=== PATIENT | female | born 1965 ===

== ENCOUNTER 2017-04-13 15:57 | Emergency (ER) | payer MEDICAID, OTHER ==
[2017-04-13 16:04] VITALS: BP 121/68; PULSE 88; RESP 20; TEMP 98.2; O2SAT 98
[2017-04-13] MEDS ORDERED: Naproxen 500 MG TAB PO STA (16:33)
--- NOTE | 2017-04-13 16:44 | ED PDOC ---
Upper Extremity Pain/Injury Time Seen by Provider: 04/13/17 16:08 Chief Complaint (Nursing): Upper Extremity Problem/Injury Chief Complaint (Provider): Left wrist pain History Per: Patient History/Exam Limitations: no limitations Onset/Duration Of Symptoms: Persistent (4 months ) Current Symptoms Are (Timing): Still Present Quality: "Pain" Severity: Moderate Additional Complaint(s): Jaja Huizar is a 52 y/o female presenting to the ER on 04/13/2017 with persistent left wrist pain ongoing for four months after suffering a fall, causing her to fracture her wrist. Patient was placed in a sugar tong splint when she presented to [facility] after she sustained the injury. Since the onset of the injury, she has not followed up with an orthopedist after visiting [facility] two more times and continues to experience pain to the wrist along with difficulty in moving her hand and fingers. Patient also states she has stopped using her sling, but has not removed her splint. She denies any acute injuries but reports intermittent numbness in her fingers. Past Medical History Reviewed: Historical Data, Nursing Documentation, Vital Signs Vital Signs: Last Vital Signs Temp 98.2 F 04/13/17 16:02 Pulse 88 04/13/17 16:02 Resp 20 04/13/17 16:02 BP 121/68 04/13/17 16:02 Pulse Ox 98 04/13/17 16:02 - Medical History PMH: Asthma, Diabetes (type II), HTN, Hypercholesterolemia Denies: Chronic Kidney Disease - Surgical History Surgical History: Appendectomy, Cholecystectomy - Family History Family History: States: Diabetes - Social History Current smoker - smoking cessation education provided: No Alcohol: None Drugs: Denies - Immunization History Hx Tetanus Toxoid Vaccination: No Hx Influenza Vaccination: Yes (07/2016) Hx Pneumococcal Vaccination: Yes (2014) - Home Medications Home Medications: Ambulatory Orders Medication Instructions Recorded Aspirin [Ecotrin] 81 mg PO DAILY #0 tabec 06/21/16 Codeine 30 mg PO TID 12/12/16 Naproxen [Naprosyn] 1 tab PO BID PRN #25 tab 12/12/16 oxyCODONE/Acetaminophen [Percocet 1 tab PO Q4H PRN #20 tab 12/12/16 5/325 mg Tab] Acetaminophen with Codeine 1 each PO Q6 #14 tablet 01/05/17 [Tylenol with Codeine #3 Tablet] Naproxen [Naprosyn] 1 tab PO BID PRN #60 tab 04/13/17 - Allergies Allergies/Adverse Reactions: Allergies Allergy/AdvReac Type Severity Reaction Status Date / Time No Known Allergies Allergy Verified 01/05/17 19:05 Review of Systems ROS Statement: Except As Marked, All Systems Reviewed And Found Negative Musculoskeletal: Positive for: Hand Pain ((+) left wrist pain ) Neurological: Positive for: Numbness Physical Exam - Reviewed Nursing Documentation Reviewed: Yes Vital Signs Reviewed: Yes - Physical Exam Appears: Positive for: In Acute Distress ((+) mild painful ) Head Exam: Positive for: ATRAUMATIC, NORMOCEPHALIC Skin: Positive for: Normal Color. Negative for: Rash Eye Exam: Positive for: Normal appearance Extremity: Positive for: Capillary Refill (2+ ), Other. Negative for: Deformity , Swelling (sugar tong splint was removed, left hand shows no deformity or swelling; fingers are held in slight flexion and there is 4+/5 strength in movement of fingers and wrist; light touch is intact with strong radial pulse; marked atrophy of muscles of left forearm noted; flexion and extension at elbow are intact, shoulder movement intact ) Neurologic/Psych: Positive for: Alert, Oriented. Negative for: Motor/Sensory Deficits - ECG O2 Sat by Pulse Oximetry: 98 Medical Decision Making Medical Decision Making: Initial Impression- Left Wrist Fracture, old Initial Plan- * XR left wrist * Naprosyn 500 mg PO * Accession No. : [id number] Patient Name / ID : CRISTIANE BREWER / [id number] Exam Date : 04/13/2017 16:39:26 ( Approved ) Study Comment : Sex / Age : F / 52Y Creator : Edward Hall MD Dictator : Edward Hall MD Inside Sales Specialist : Newcomer Hostess : Edward Hall MD Approver2 : Report Date : 04/13/2017 17:47:51 My Comment : PROCEDURE: Left wrist dated 04/13/2017 HISTORY: LEFT wrist pain h/o fracture no followup COMPARISON: No prior study available for comparison. FINDINGS: BONES: Current study reveals old healed fracture deformity of the distal left radius. . There is palmar angulation of the distal healed fracture fragment. Note that the distal ulna styloid is not visible on this exam which could be an anatomic variation however old fracture with resorption not excluded. . Mild diffuse demineralization. JOINTS: Joint spaces relatively preserved. SOFT TISSUES: Soft tissues appear grossly unremarkable. No radiopaque foreign bodies. OTHER FINDINGS: None. IMPRESSION: Current study reveals old healed fracture deformity of the distal left radius. . There is palmar angulation of the distal healed fracture fragment. Note that if if symptoms persist or occult fracture suspected clinically recommend repeat radiographs in 5-10 days as most fractures should become radiographically evident in this timeframe. Pt was given basic wrist splint and sling. Pt was strongly encouraged to schedule a follow-up with an orthopedic within 2-3 days. Documented by Herrera Ortiz, acting as a scribe for Soniya Cummins MD. All medical record entries made by the Scribe were at my direction and personally dictated by me. I have reviewed the chart and agree that the record accurately reflects my personal performance of the history, physical exam, medical decision making, and the department course for this patient. I have also personally directed, reviewed, and agree with the discharge instructions and disposition. Disposition - Clinical Impression Clinical Impression: Fracture of wrist - Disposition Referrals: [facility] [Outside] [facility] [Outside] Ulises Ingram MD [Medical Doctor] - (LLAMA A LA OFICINA POR LA MANANA A HACER MIRELLA ELLEN) Disposition: Routine/Home Disposition Time: 16:20 Condition: STABLE Prescriptions: Naproxen [Naprosyn] 1 tab PO BID PRN #60 tab PRN Reason: Pain Instructions: Wrist Fracture in Adults (ED) Print Language: WOLOF
[2017-04-13] MEDS ORDERED: Naproxen 500 MG TAB PO ONE (17:22)
--- NOTE | 2017-04-13 17:49 | RAD ---
PROCEDURE: Left wrist dated 04/13/2017 HISTORY: LEFT wrist pain h/o fracture no followup COMPARISON: No prior study available for comparison. FINDINGS: BONES: Current study reveals old healed fracture deformity of the distal left radius. . There is palmar angulation of the distal healed fracture fragment. Note that the distal ulna styloid is not visible on this exam which could be an anatomic variation however old fracture with resorption not excluded. . Mild diffuse demineralization. JOINTS: Joint spaces relatively preserved. SOFT TISSUES: Soft tissues appear grossly unremarkable. No radiopaque foreign bodies. OTHER FINDINGS: None. IMPRESSION: Current study reveals old healed fracture deformity of the distal left radius. . There is palmar angulation of the distal healed fracture fragment. Note that if if symptoms persist or occult fracture suspected clinically recommend repeat radiographs in 5-10 days as most fractures should become radiographically evident in this timeframe.
== END 2017-04-13 17:00 | disposition home or self-care (01) ==
LOC: H.ER 15:57
DX: S62.102G Fracture of unspecified carpal bone, left wrist, subsequent encounter for fracture with delayed healing (principal); W19.XXXD Unspecified fall, subsequent encounter; E11.9 Type 2 diabetes mellitus without complications; I10 Essential (primary) hypertension; M62.532 Muscle wasting and atrophy, not elsewhere classified, left forearm